=== PATIENT | male | born 1985 | race Caucasian/White ===

== ENCOUNTER 2021-01-25 18:20 | Emergency (ER) | payer OTHER ==
[2021-01-25 19:54] LABS: CORONAVIRUS COVID-19 NAA NEGATIVE (NEGATIVE)
--- NOTE | 2021-01-25 20:09 | EDM.PDOC ---
ED HPI GENERAL MEDICAL PROBLEM - General Chief Complaint: General Stated Complaint: HEADACHE AND SINUS ISSUES Time Seen by Provider: 01/25/21 18:50 Source of Information: Reports: Patient - History of Present Illness INITIAL COMMENTS - FREE TEXT/NARRATIVE: This is a 35 year old male presenting with sore throat, congestion, and diarrhea. reports he initially developed a sore throat, congestion, and headache last night. he has had a mild cough with production of clear sputum. Today he has had 3 episodes of watery diarrhea. No associated nausea or vomiting. No abdominal pain. feels feverish and chilled, but hasn't measured a temperature. He reports that he called in sick to work and requires a covid test before he can return. - Related Data Allergies Allergy/AdvReac Type Severity Reaction Status Date / Time No Known Allergies Allergy Verified 01/25/21 18:59 Home Meds: Home Meds NK [No Known Home Meds] 01/25/21 [History] Past Medical History - Past Health History Medical/Surgical History: Denies Medical/Surgical History Social & Family History - Family History Family Medical History: No Pertinent Family History - Recreational Drug Use Recreational Drug Use: No ED ROS GENERAL - Review of Systems Review Of Systems: Comprehensive ROS is negative, except as noted in HPI. ED EXAM, GENERAL - Physical Exam Exam: See Below Exam Limited By: No Limitations General Appearance: Alert, WD/WN, No Apparent Distress Nose: Normal Inspection, Normal Mucosa Throat/Mouth: Normal Oropharynx, Other (Posterior oropharynx with mild erythema, but no tonsillar enlargement or exudate) Head: Atraumatic, Normocephalic Neck: Non-Tender, Full Range of Motion. No: Lymphadenopathy (R), Lymphadenopathy (L) Respiratory/Chest: No Respiratory Distress, Lungs Clear, Normal Breath Sounds, No Accessory Muscle Use, Chest Non-Tender Cardiovascular: Normal Peripheral Pulses, Regular Rate, Rhythm GI/Abdominal: Soft, Non-Tender Extremities: Normal Inspection, Normal Range of Motion Neurological: Alert, Oriented Skin Exam: Warm, Dry, Intact, Normal Color, No Rash Lymphatic: No Adenopathy Course - Vital Signs Last Recorded V/S: Last Vital Signs Temp 98 F 01/25/21 19:02 Pulse 89 01/25/21 19:02 Resp 26 H 01/25/21 19:02 BP 148/90 H 01/25/21 19:02 Pulse Ox 98 01/25/21 19:02 - Orders/Labs/Meds Orders: Active Orders 24 hr Category Date Time Status Isolation [COMM] Stat Oth 01/25/21 19:03 Ordered Labs: Laboratory Tests 01/25/21 Range/Units 19:03 Influenza Type A RNA Negative (NEGATIVE) RSV RNA ([facility]) Negative (NEGATIVE) Influenza Type B RNA Negative (NEGATIVE) SARS-CoV-2 RNA ([facility]) Negative (NEGATIVE) Departure - Departure Time of Disposition: 20:08 Disposition: Home, Self-Care 01 Condition: Good Clinical Impression: Viral illness - Discharge Information Instructions: Viral Illness, Adult Referrals: PCP,None [Primary Care Provider] - Forms: ED Department Discharge Additional Instructions: Use tylenol and/or ibuprofen as needed. Rest and drink plenty of fluids. You may return to work as long as you are feeling improved and do not have a fever. Sepsis Event Note (ED) - Evaluation Sepsis Screening Result: No Definite Risk - Focused Exam Vital Signs: Vital Signs Temp Pulse Resp BP Pulse Ox 01/25/21 19:02 98 F 89 26 H 148/90 H 98 01/25/21 19:00 98 F 89 26 H 148/90 H - Problem List Review Problem List Initiated/Reviewed/Updated: Yes - My Orders Last 24 Hours: My Active Orders 01/25/21 19:03 Isolation [COMM] Stat - Assessment/Plan Last 24 Hours: My Active Orders 01/25/21 19:03 Isolation [COMM] Stat Plan: This is a 35 year old male presenting with sore throat, congestion, cough, diarrhea. He is afebrile and well appearing on arrival. he has normal oxygen saturations and normal breath sounds without any respiratory distress. There is no indication for CXR. COVID, influenza, and RSV negative. I suspect this is viral in etiology and self-limiting. I recommended symptomatic management with fluids, rest, ibuprofen, tyelnol as needed. He is ok to return to work as long as he remains fever free and feels up to it. He can follow up in clinic if not improving over the next 3-4 days.
== END 2021-01-25 20:22 | disposition home or self-care (01) ==
LOC: JP.ED 18:20
DX: B34.9 Viral infection, unspecified (principal); Z20.822 Contact with and (suspected) exposure to COVID-19
CPT/HCPCS: 0241U; 99282; 99283